=== PATIENT | female | born 1985 | race Caucasian/White ===

== ENCOUNTER 2018-11-08 07:23 | Emergency (ER) | payer OTHER ==
[~2018-11-08] VITALS: Ht 157.5 cm; Wt 89.8 kg
--- NOTE | 2018-11-08 07:55 | ED GU-Female ---
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 Was just switched from warfarin to xarelto. Is having abdominal cramps rated at 9/10 and has taken tylenol with no relief. States bleeding is less this morning but the pain is worse. Nursing Sepsis Screen: No Definite Risk Source: patient, family Exam Limitations: no limitations History of Present Illness Date Seen by Provider: Nov 08, 2018 Time Seen by Provider: 07:50 Initial Comments onset of heavy cramping and bleeding yesterday....menses. Taking a new blood thinner, xarelto. Previously took Coumadin for about 10 years for a brain aneurysm. Concerned regarding the amount of bleeding. - 3 miscarriages Timing/Duration: yesterday Severity/Quality: moderate Allergies and Home Medications Allergies Coded Allergies: cephalexin (Verified Allergy, Unknown, throat swelling , 11/08/18) Home Medications Tramadol HCl 50 Mg Tablet, 50 MG PO Q6H Prescribed by: VIKASH GOODSON on 11/08/18 0754 Patient Home Medication List Home Medication List Reviewed: Yes Review of Systems Review of Systems Constitutional: no symptoms reported; No dizziness; malaise; No weakness Cardiovascular: No chest pain, No edema, No palpitations, No syncope Gastrointestinal: abdominal pain (cramping); No nausea, No vomiting Genitourinary: denies discharge, denies dysuria, denies flank pain; pain, other (bleeding) Musculoskeletal: No back pain, No joint pain Past Rpoagwq-Hxqhol-Ezcykk Hx Past Med/Social Hx: Reviewed Nursing Past Med/Soc Hx Patient Social History Alcohol Use: Denies Use Recreational Drug Use: No Smoking Status: Never a Smoker 2nd Hand Smoke Exposure: No Recent Foreign Travel: No Contact w/Someone Who Travel: No Recent Infectious Disease Expo: No Recent Hopitalizations: No Physical Abuse: No Sexual Abuse: No Mistreated: No Fear: No Seasonal Allergies Seasonal Allergies: No Past Medical History Surgeries: Yes (clot retrieval for stroke in 2009) Appendectomy Respiratory: No Cardiac: No Neurological: Yes Stroke Genitourinary: No Gastrointestinal: No Musculoskeletal: No Endocrine: Yes Lupus HEENT: No Cancer: No Psychosocial: No Integumentary: No Blood Disorders: No Physical Exam Vital Signs Vital Signs - First Documented 11/08/18 07:28 Temp 96.5 Pulse 77 Resp 16 B/P (MAP) 116/79 (91) Pulse Ox 100 Capillary Refill : Less Than 3 Seconds Height, Weight, BMI Height: 5'2.00" Weight: 198lbs. oz. 89.027416ze; BMI Method:Stated General Appearance: WD/WN, no apparent distress Cardiovascular: regular rate, rhythm, no edema Respiratory: chest non-tender, lungs clear, normal breath sounds Gastrointestinal: normal bowel sounds, soft; No guarding, No rebound; tenderness (generalized lower abdomen) Progress/Results/Core Measures Suspected Sepsis Recent Fever Within 48 Hours: No Infection Criteria Present: None New/Unexplained Altered Menta: No Sepsis Screen: No Definite Risk SIRS Temperature:96.5 Pulse: 77 Respiratory Rate: 16 Laboratory Tests 11/08/18 08:02: Blood Pressure 116 /79 Mean: 91 Laboratory Tests 11/08/18 08:02: Results/Orders Lab Results Laboratory Tests Test 11/08/18 08:02 Range/Units My Orders Orders - VIKASH GOODSON DO Hcg,Qualitative Urine (11/08/18 07:40) Hydrocodone/Apap 5/325 Tablet (Lortab 5 (11/08/18 08:00) Cbc No Diff (11/08/18 07:48) Medications Given in ED Current Medications Medications Dose Ordered Sig/Jean Route Start Time Stop Time Status Last Admin Dose Admin Acetaminophen/ Hydrocodone Bitart 2 tab ONCE ONCE PO 11/08/18 08:00 11/08/18 08:01 DC 11/08/18 07:54 2 TAB Vital Signs/I&O 11/08/18 07:28 Temp 96.5 Pulse 77 Resp 16 B/P (MAP) 116/79 (91) Pulse Ox 100 Capillary Refill : Less Than 3 Seconds Blood Pressure Mean: 91 Departure Impression Primary Impression: Dysmenorrhea Additional Impression: Anticoagulated Disposition: 01 HOME, SELF-CARE Condition: Stable Departure-Patient Inst. Decision time for Depature: 07:55 Scripts Ondansetron (Ondansetron Odt) 4 Mg Tab.rapdis 4 MG PO Q6H for Nausea/Vomiting, #10 TAB Prov: VIKASH GOODSON DO 11/08/18 Tramadol HCl (Ultram) 50 Mg Tablet 50 MG PO Q6H for Pain, #10 TAB Prov: VIKASH GOODSON DO 11/08/18 VIKASH GOODSON DO Nov 08, 2018 07:55
[2018-11-08] MEDS ORDERED: TRAM-42 PO (07:59)
[2018-11-08] MEDS ORDERED: HYDROcodone/APAP 5 MG/325 MG (LORTAB) TAB PO ONE (08:00)
[2018-11-08] MEDS ORDERED: ONDA4TAB11 PO (08:17)
[2018-11-08 08:19] LABS: HEMOGLOBIN 11.8 G/DL (11.5-16.0); MEAN PLATELET VOLUME 9.4 FL (7.4-10.4); RED CELL DISTRIBUTION WIDTH 14.5 % (10.0-14.5)
[2018-11-08] MEDS ORDERED: ONDANSETRON 4 MG (ZOFRAN) ORAL DISSOLVE TAB PO STA (08:33)
[2018-11-08 09:32] VITALS: BP 111/61
[2018-11-08] MEDS ORDERED: OXYC1TAB16 PO (17:08)
[2018-11-08] MEDS ORDERED: OXYC1TAB87 PO (17:29)
== END 2018-11-08 08:50 | disposition home or self-care (01) ==
LOC: ER FS 07:25
DX: N94.6 Dysmenorrhea, unspecified (principal); M32.9 Systemic lupus erythematosus, unspecified; Z88.1 Allergy status to other antibiotic agents; Z79.01 Long term (current) use of anticoagulants; Z86.73 Personal history of transient ischemic attack (TIA), and cerebral infarction without residual deficits; Z90.49 Acquired absence of other specified parts of digestive tract
CPT/HCPCS: 36415; 84703; 85027

== ENCOUNTER 2018-11-08 14:43 | Emergency (ER) | payer OTHER ==
[~2018-11-08] VITALS: Ht 157.5 cm; Wt 89.8 kg
[~2018-11-08 14:43] MED LIST: ONDA4TAB11 PO; TRAM-42 PO
[2018-11-08] MEDS ORDERED: PROMETHAZINE INJ 25 MG/ML (PHENERGAN) AMP IVP ONE ×2 (15:00→17:30)
[2018-11-08] MEDS ORDERED: fentaNYL INJECTION 100 MCG/2 ML AMP IVP ONE ×3 (15:00→17:30)
[2018-11-08] MEDS ORDERED: NS IV 1000 ML 1,000 ML IV SCH (15:00)
[2018-11-08 15:05] LABS: BASOPHILS % (AUTO) 0 % (0-10); EOSINOPHILS % (AUTO) 0 % (0-10); HEMATOCRIT 33 % (35-52); HEMOGLOBIN 11.3 G/DL (11.5-16.0); LYMPHOCYTES # (AUTO) 0.4 X 10^3 (1.0-4.0); LYMPHOCYTES % (AUTO) 6 % (12-44); MEAN CORPUSCULAR HEMOGLOBIN 27 PG (25-34); MEAN CORPUSCULAR HGB CONC 34 G/DL (32-36); MEAN CORPUSCULAR VOLUME 80 FL (80-99); MEAN PLATELET VOLUME 9.3 FL (7.4-10.4); MONOCYTES # (AUTO) 0.4 X 10^3 (0.0-1.0); MONOCYTES % (AUTO) 6 % (0-12); NEUTROPHILS % (AUTO) 88 % (42-75); PLATELET COUNT 301 10^3/uL (130-400); RED CELL DISTRIBUTION WIDTH 14.8 % (10.0-14.5); WHITE BLOOD COUNT 6.8 10^3/uL (4.3-11.0)
--- NOTE | 2018-11-08 15:06 | ED Abdominal Pain ---
General Stated Complaint: ABD PAIN Source of Information: Patient Exam Limitations: No Limitations History of Present Illness Date Seen by Provider: Nov 08, 2018 Time Seen by Provider: 15:04 Initial Comments To ER by private vehicle with reports of lower abdominal cramping and vaginal bleeding. She reports lightheadedness. She was seen at the [place] emergency room this morning for this, CBC was done showing a hemoglobin of 11.8. She has used one pad today, she used 4 pads yesterday. She is very nauseous which she relates to the pain. She has vomiting on arrival. Reports history of lupus, on xarelto 20 mg daily for a history of stroke secondary to antiphospholipid syndrome. She was then seen at the clinic in [place] for follow-up after the emergency room visit, the fingerstick hemoglobin was 10.2 which was down from 11.8 venous stick in the emergency room. Timing/Duration: 1-2 Days Severity/Quality: Cramping Radiation: No Radiation Activities at Onset: None Associated Symptoms: Denies Symptoms Allergies and Home Medications Allergies Coded Allergies: cephalexin (Verified Allergy, Unknown, throat swelling , 11/08/18) Home Medications Ondansetron 4 Mg Tab.rapdis, 4 MG PO Q6H Prescribed by: VIKASH GOODSON on 11/08/18 0817 Oxycodone HCl/Acetaminophen 1 Each Tablet, 1 TAB PO Q4H PRN for PAIN-SEVERE Prescribed by: CARLOS BRONSON on 11/08/18 1729 Tramadol HCl 50 Mg Tablet, 50 MG PO Q6H Prescribed by: VIKASH GOODSON on 11/08/18 0759 Patient Home Medication List Home Medication List Reviewed: Yes Review of Systems Review of Systems Constitutional: see HPI EENTM: No Symptoms Reported Respiratory: No Symptoms Reported Cardiovascular: No Symptoms Reported Gastrointestinal: See HPI, Abdominal Pain, Nausea Genitourinary: No Symptoms Reported Musculoskeletal: no symptoms reported Skin: no symptoms reported Psychiatric/Neurological: No Symptoms Reported Endocrine: No Symptoms Reported Past Hhzcdbt-Xgzave-Fgcqoh Hx Patient Social History 2nd Hand Smoke Exposure: No Recent Hopitalizations: No Seasonal Allergies Seasonal Allergies: No Past Medical History Surgeries: Yes (clot retrieval for stroke in 2009) Appendectomy Respiratory: No Cardiac: No Neurological: Yes Stroke Genitourinary: No Gastrointestinal: No Musculoskeletal: No Endocrine: Yes Lupus HEENT: No Cancer: No Psychosocial: No Integumentary: No Blood Disorders: No Physical Exam Vital Signs Vital Signs - First Documented 11/08/18 14:49 Temp 98.7 Pulse 73 Resp 28 B/P (MAP) 133/87 (102) Pulse Ox 100 O2 Delivery Room Air Capillary Refill : Height/Weight/BMI Height: 5'2.00" Weight: 198lbs. oz. 89.848401zb; BMI Method:Stated General Appearance: WD/WN, no apparent distress, other (tachypneic on arrival, pale. Blood pressure is 133/78, heart rate in the 70s.) Respiratory: normal breath sounds, no respiratory distress, no accessory muscle use Cardiovascular: regular rate, rhythm, no murmur Gastrointestinal: normal bowel sounds, soft Extremities: normal range of motion, non-tender Pelvic: other (pelvic exam done with Rin GAN at the bedside. There is minimal amount of dark blood in the vaginal vault, there is a large clot at the cervical os, unable to be removed with a simple Q-tip.) Neurologic/Psychiatric: alert, normal mood/affect, oriented x 3 Skin: normal color, warm/dry Progress/Results/Core Measures Results/Orders Lab Results Laboratory Tests Test 11/08/18 14:55 11/08/18 16:53 11/08/18 17:00 Range/Units White Blood Count 6.8 4.3-11.0 10^3/uL Red Blood Count 4.13 L 4.35-5.85 10^6/uL Hemoglobin 11.3 L 11.5-16.0 G/DL Hematocrit 33 L 35-52 % Mean Corpuscular Volume 80 80-99 FL Mean Corpuscular Hemoglobin 27 25-34 PG Mean Corpuscular Hemoglobin Concent 34 32-36 G/DL Red Cell Distribution Width 14.8 H 10.0-14.5 % Platelet Count 301 130-400 10^3/uL Mean Platelet Volume 9.3 7.4-10.4 FL Neutrophils (%) (Auto) 88 H 42-75 % Lymphocytes (%) (Auto) 6 L 12-44 % Monocytes (%) (Auto) 6 0-12 % Eosinophils (%) (Auto) 0 0-10 % Basophils (%) (Auto) 0 0-10 % Neutrophils # (Auto) 6.0 1.8-7.8 X 10^3 Lymphocytes # (Auto) 0.4 L 1.0-4.0 X 10^3 Monocytes # (Auto) 0.4 0.0-1.0 X 10^3 Eosinophils # (Auto) 0.0 0.0-0.3 10^3/uL Basophils # (Auto) 0.0 0.0-0.1 10^3/uL Neutrophils % (Manual) 93 % Lymphocytes % (Manual) 4 % Monocytes % (Manual) 3 % Blood Morphology Comment NORMAL Sodium Level 138 135-145 MMOL/L Potassium Level 3.7 3.6-5.0 MMOL/L Chloride Level 105 98-107 MMOL/L Carbon Dioxide Level 18 L 21-32 MMOL/L Anion Gap 15 H 5-14 MMOL/L Blood Urea Nitrogen 10 7-18 MG/DL Creatinine 0.71 0.60-1.30 MG/DL Estimat Glomerular Filtration Rate > 60 BUN/Creatinine Ratio 14 Glucose Level 110 H 70-105 MG/DL Calcium Level 9.3 8.5-10.1 MG/DL Corrected Calcium 9.1 8.5-10.1 MG/DL Total Bilirubin 0.7 0.1-1.0 MG/DL Aspartate Amino Transf (AST/SGOT) 17 5-34 U/L Alanine Aminotransferase (ALT/SGPT) 14 0-55 U/L Alkaline Phosphatase 60 40-136 U/L Total Protein 7.4 6.4-8.2 GM/DL Albumin 4.2 3.2-4.5 GM/DL Serum Test, Qualitative NEGATIVE NEGATIVE Urine Color YELLOW Urine Clarity SLIGHTLY CLOUDY Urine pH 5 5-9 Urine Specific [place] 1.025 H 1.016-1.022 Urine Protein 2+ H NEGATIVE Urine Glucose (UA) NEGATIVE NEGATIVE Urine Ketones 4+ H NEGATIVE Urine Nitrite NEGATIVE NEGATIVE Urine Bilirubin NEGATIVE NEGATIVE Urine Urobilinogen NORMAL NORMAL MG/DL Urine Leukocyte Esterase 1+ H NEGATIVE Urine RBC (Auto) 5+ H NEGATIVE Urine RBC 25-50 H /HPF Urine WBC 2-5 /HPF Urine Crystals NONE /LPF Urine Bacteria FEW H /HPF Urine Casts NONE /LPF Urine Mucus NEGATIVE /LPF Urine Culture Indicated NO My Orders Orders - CARLOS BRONSON CAN PILER Cbc With Automated Diff (11/08/18 15:00) Hcg,Qualitative Serum (11/08/18 15:00) Comprehensive Metabolic Panel (11/08/18 15:00) Ua Culture If Indicated (11/08/18 15:00) Ed Iv/Invasive Line Start (11/08/18 15:00) Us Non Ob Pelvis Comp/Transvag (11/08/18 15:00) Fentanyl Injection (Sublimaze Injection (11/08/18 15:00) Promethazine Injection (Phenergan Injec (11/08/18 15:00) Ns Iv 1000 Ml (Sodium Chloride 0.9%) (11/08/18 15:00) Manual Differential (11/08/18 14:55) Ct Abd/Pelvis Wo(Kidney Stone) (11/08/18 16:06) Fentanyl Injection (Sublimaze Injection (11/08/18 16:15) Wet Prep (11/08/18 16:19) Neisseria Gonorrhea Swab (11/08/18 16:19) Genital Culture (11/08/18 16:19) Chlamydia Trachomatis Swab (11/08/18 16:19) Fentanyl Injection (Sublimaze Injection (11/08/18 17:30) Promethazine Injection (Phenergan Injec (11/08/18 17:30) Medications Given in ED Current Medications Medications Dose Ordered Sig/Jean Route Start Time Stop Time Status Last Admin Dose Admin Fentanyl Citrate 50 mcg ONCE ONCE IVP 11/08/18 15:00 11/08/18 15:02 DC 11/08/18 15:10 50 MCG Fentanyl Citrate 75 mcg ONCE ONCE IVP 11/08/18 16:15 11/08/18 16:16 DC 11/08/18 16:12 75 MCG Promethazine HCl 12.5 mg ONCE ONCE IVP 11/08/18 15:00 11/08/18 15:02 DC 11/08/18 15:14 12.5 MG Vital Signs/I&O 11/08/18 14:49 Temp 98.7 Pulse 73 Resp 28 B/P (MAP) 133/87 (102) Pulse Ox 100 O2 Delivery Room Air Diagnostic Imaging Diagonstic Imaging: Ultrasound Comments Ultrasound shows an enlarged uterus with question of a sizable mass involving the lower uterine segment/cervix which could be neoplastic in nature. It measures 7 x 5.2 x 4.3 cm of altered echogenicity. However after doing the pelvic exam I suspect this is the clot that we are actually seeing on ultrasound. Either way it is not hemorrhaging as suggested by stable vital signs hemoglobin and no significant blood in the vaginal vault. She'll need to follow- up with gynecology. Departure Communication (Admissions) Oxygen saturation dropped Down to 85% after second dose of fentanyl, quickly francisco j back to normal saturation after reminding her to take some deep breaths. We'll also obtain a CT scan to evaluate for other causes of pain such as ureteral stone. [address] [address] Dr. Colon, recommends discussing the possibility of need for D&C with gynecology. I then spoke with Dr. Negrete on-call for gynecology. Recommends pain management at this time, would not proceed with D&C with out active hemorrhage given that she is on xarelto. Updated Dr. Colon on our plan, will discharge to home with Percocet for pain control, follow-up with Dr. Negrete in the outpatient clinic and Dr. roy from primary care. Dr. Negrete has called back and was able to provide us with the time that she could see the patient Sunday morning at 8 AM. This was very much appreciated. Impression Primary Impression: Menstrual cramp Additional Impressions: Anticoagulant long-term use Vaginal bleeding Disposition: HOME, SELF-CARE Condition: Stable Departure-Patient Inst. Decision time for Depature: 17:06 Referrals: ANNIA ROY MD (PCP/Family) Primary Care Physician NANCY NEGRETE DO Patient Instructions: IRREGULAR VAGINAL BLEEDING Add. Discharge Instructions: 1. Do not be alarmed if you pass a large clot in the next 1-2 days. Return to ER for any lightheadedness or other concerns such as high heart rate. Follow-up with Dr. Negrete, RADIATOR MECHANIC on Sunday here at the hospital on second floor at 8 AM. Return to ER for any concerns or worsening symptoms in the meantime. Scripts Oxycodone HCl/Acetaminophen (Percocet 5-325 mg Tablet) 1 Each Tablet 1 TAB PO Q4H PRN for PAIN-SEVERE MDD 6 TABS for 7 Days, #20 TAB Prov: CARLOS BRONSON APRN 11/08/18 Copy Copies To 1: WICHO COLON DO; NANCY NEGRETE PETER J APRN Nov 08, 2018 15:06
[2018-11-08 15:28] LABS: ALANINE AMINOTRANSFERASE 14 U/L (0-55); ALBUMIN 4.2 GM/DL (3.2-4.5); ALKALINE PHOSPHATASE 60 U/L (40-136); BILIRUBIN,TOTAL 0.7 MG/DL (0.1-1.0); BUN/CREATININE RATIO 14; CALCIUM 9.3 MG/DL (8.5-10.1); CARBON DIOXIDE 18 MMOL/L (21-32); CHLORIDE 105 MMOL/L (98-107); CREATININE SERUM 0.71 MG/DL (0.60-1.30); GFR ESTIMATED > 60; GLUCOSE 110 MG/DL (70-105); POTASSIUM 3.7 MMOL/L (3.6-5.0); SODIUM 138 MMOL/L (135-145); TOTAL PROTEIN 7.4 GM/DL (6.4-8.2)
[2018-11-08 15:42] LABS: LYMPHOCYTES % (MANUAL) 4 %; MONOCYTES % (MANUAL) 3 %; NEUTROPHILS % (MANUAL) 93 %; RBC MORPH NORMAL
--- NOTE | 2018-11-08 16:43 | Diagnostic Imaging Report ---
PROCEDURE: US Non-OB pelvis comp/trans. TECHNIQUE: Multiple realtime grayscale images were obtained of the pelvis in various projections endovaginally. Transabdominal imaging was also performed. INDICATION: Abdominal pain. COMPARISON: There are no prior studies available for comparison. FINDINGS: The uterus is nongravid and mildly enlarged measuring 11.2 x 7.1 x 4.3 cm. The endometrial lining is not thickened measuring 5-6 mm. However, there is a poorly defined 7 x 5.2 x 4.3 cm area of altered echogenicity within the lower uterine segment. There may be a small cystic component associated with this finding. This soft tissue density is of uncertain etiology but worrisome for a cervical neoplastic mass. If further imaging is desired, then CT would be recommended. Ultimately, direct visualization would be recommended. The right ovary could not be visualized. The left ovary is unremarkable. IMPRESSION: 1. The uterus is enlarged, and there is a question of a sizable mass involving the lower uterine segment/cervix. This could be neoplastic in nature. Recommendations as above. 2. There is no acute pelvic abnormality noted otherwise. 3. The right ovary was not visualized. Dictated by: Dictated on workstation # [id number]
--- NOTE | 2018-11-08 16:51 | Diagnostic Imaging Report ---
PROCEDURE: CT urinary tract, rule out kidney stone. TECHNIQUE: Multiple contiguous axial images were obtained through the abdomen and pelvis without the use of intravenous contrast. Auto Exposure Controls were utilized during the CT exam to meet ALARA standards for radiation dose reduction. INDICATION: Hematuria, nausea, vomiting, and lower abdominal pain. FINDINGS: The appendix is surgically absent. There is no hydroureteronephrosis. No radiodense urinary tract calculi. No perinephric edema. Liver, spleen, adrenals, pancreas, and gallbladder are all negative. The aorta is nonaneurysmal. There is no bowel obstruction. There is no diverticulitis. There is some mild distal left external iliac chain lymphadenopathy of uncertain etiology. The largest of these nodes was 2.3 x 1.6 cm. Subcentimeter lymph nodes in the inguinal canals did not appear distorted or pathologic. There is abnormal appearance and fusiform enlargement of the lower uterine segment and cervix where there is suggestion of intraluminal hyperdense mass effect. This could be blood products or soft tissue lesion. A correlative pelvic ultrasound is recommended as further evaluation. Lesion in question was roughly 5 cm in length and in axial plane measured maximal dimension of 4.1 cm transverse. IMPRESSION: 1. Abnormal appearance of the lower uterine segment and cervix, appearing distended by an intraluminal hyperdense mass effect which could be blood clot or soft tissue lesion. Pelvic ultrasound recommended as further evaluation. 2. We note mild etiology-indeterminate left pelvic sidewall external iliac chain lymphadenopathy. 3. Unobstructed urinary tracts. No other potential acute finding. Dictated by: Dictated on workstation # [id number]
[2018-11-08] MEDS ORDERED: OXYC1TAB16 PO (17:08)
[2018-11-08 17:12] LABS: BILIRUBIN,URINE NEGATIVE (NEGATIVE); CLARITY,URINE SLIGHTLY CLOUDY; COLOR,URINE YELLOW; GLUCOSE, URINE (UA) NEGATIVE (NEGATIVE); KETONES,URINE 4+ (NEGATIVE); LEUKOCYTE ESTERASE ,URINE 1+ (NEGATIVE); NITRITE,URINE NEGATIVE (NEGATIVE); PH,URINE 5 (5-9); PROTEIN,URINE 2+ (NEGATIVE); UROBILINOGEN,URINE NORMAL (NORMAL)
[2018-11-08 17:29] LABS: BACTERIA,URINE FEW /HPF; RBC,URINE 25-50 /HPF
[2018-11-08] MEDS ORDERED: OXYC1TAB87 PO (17:29)
[2018-11-08 18:01] VITALS: BP 134/93
== END 2018-11-08 18:03 | disposition home or self-care (01) ==
LOC: EDUNIT# 14:43 → ER 14:44
DX: N94.6 Dysmenorrhea, unspecified (principal); N93.9 Abnormal uterine and vaginal bleeding, unspecified; M32.9 Systemic lupus erythematosus, unspecified; Z79.01 Long term (current) use of anticoagulants; Z88.1 Allergy status to other antibiotic agents; Z90.49 Acquired absence of other specified parts of digestive tract; Z86.73 Personal history of transient ischemic attack (TIA), and cerebral infarction without residual deficits
CPT/HCPCS: 36415; 74176; 76830; 76856; 80053; 81000; 84703; 85007; 85027; 87070; 87077; 87205; 87210; 87491; 87591; 96361; 96374; 96375; 96376

== ENCOUNTER → 2018-11-15 | Outpatient (CLI) | payer OTHER ==
[~2018-11-15] MED LIST changes: +OXYC1TAB16 PO; +OXYC1TAB87 PO
--- NOTE | 2018-11-15 11:56 | Diagnostic Imaging Report ---
PROCEDURE: US Non-ob pelvis comp/trans. TECHNIQUE: Multiple realtime grayscale images were obtained of the pelvis in various projections endovaginally. Transabdominal imaging was also performed. INDICATION: Menorrhagia and uterine mass. Correlation is made with the pelvic ultrasound from the 11/08/[address] abdomen and pelvis from 11/08/2018. FINDINGS: Uterus measures 8.9 x 5.6 x 4.8 cm. Previously noted echogenic mass in the region of the lower uterine segment is again noted but appears slightly smaller on today's study at 4.1 x 2.7 x 2.3 cm. Endometrium is 7 mm in thickness. Right ovary measures 3.8 x 2.5 x 1.9 cm and the left ovary measures 3.2 x 3.0 x 2.3 cm. There is an approximately 2 cm left ovarian cyst. There is blood flow to the ovaries. IMPRESSION: Echogenic heterogeneous mass in the region of the lower uterine segment does appear to be slightly smaller when compared with studies from one week earlier. This remains indeterminate. Decrease in size could either be postsurgical or perhaps some contraction of blood clot. Underlying neoplasm cannot be entirely excluded. Dictated by: Dictated on workstation # [id number]
== END ==
LOC: RAD 10:31
PROVIDERS: ATTEND Obstetrics & Gynecology
DX: N92.0 Excessive and frequent menstruation with regular cycle (principal); N85.8 Other specified noninflammatory disorders of uterus
CPT/HCPCS: 76830; 76856

== ENCOUNTER 2018-11-26 07:33 | Day surgery (SDC) | payer OTHER ==
[2018-11-26] VITALS (10 sets, daily range): BP systolic 100–133; BP diastolic 68–85
[~2018-11-26] VITALS: Ht 157.5 cm; Wt 86.3 kg
[~2018-11-26 07:33] MED LIST changes: +ASPI-586 PO; +HYDR200T46 PO; +LORA1TAB PO; +PRED2.5T PO; +RIVA20TA PO
[2018-11-26] MEDS: LACTATED RINGERS 1,000 ML IV PRN ×3 (08:15→10:13)
[2018-11-26] MEDS ORDERED: LIDOCAINE PF 2% 5 ML (XYLOCAINE) VIAL ONE (08:27)
[2018-11-26] MEDS ORDERED: MIDAZOLAM 2 MG/2 ML (VERSED) VIAL ONE (08:27)
[2018-11-26] MEDS ORDERED: proPOfol 200 MG/20 ML (DIPRIVAN) VIAL IV ONE (08:27)
[2018-11-26] MEDS ORDERED: fentaNYL INJECTION 100 MCG/2 ML AMP ONE (08:28)
[2018-11-26] MEDS ORDERED: HYDROCORTISONE 100 MG/2 ML (Solu-CORTEF) VIAL ONE (09:11)
[2018-11-26] MEDS ORDERED: CLINDAMYCIN 600 MG/50 ML IVPB 50 ML IV ONE ×2 (09:16→09:30)
--- NOTE | 2018-11-26 09:27 | Progress Note-Pre Operative ---
Pre-Operative Progress Note H&P Reviewed The H&P was reviewed, patient examined and no changes noted. Date Seen by Provider: Nov 26, 2018 Time Seen by Provider: 09:20 Date H&P Reviewed: Nov 26, 2018 Time H&P Reviewed: 09:20 Pre-Operative Diagnosis: menorrhagia, anticogulated, Lupus NANCY NEGRETE DO Nov 26, 2018 09:27
--- NOTE | 2018-11-26 09:33 | Discharge Inst-Surgical ---
Discharge Inst-Surgical Reconcile Patient Problems Problems Reviewed?: Yes Depart Medication/Instructions New, Converted or Re-Newed RX: RX Given to Pt/Family Final Diagnosis: menorrhagia Consults/Follow Up Goal/Follow Up Appt.: 1-2 weeks with Sumit Patient Instructions: nothing in the vagina for 2-4 weeks (until discharge has stopped); call if questions Activity Activity as Tolerated: Yes Driving Instructions: No Driving for 24 Hours No Driving When on Pain Meds: Yes Incentive Spirometry: Every 2 Hours While Awake Avoid ALL Tobacco Products: Smoking of Any Kind, Chewing Tobacco, Second Hand Smoke Diet Diet for 24 Hours: No Alcohol Diet After 24 Hours: Resume Home Diet Symptoms to Report to Physicia: Bleeding Excessive, Pain Increased, Fever Over 101 Degrees F, Vaginal Bleeding Increase, Vaginal Discharge Foul If Any Problems/Questions/Issu: Contact Your Physician NANCY NEGRETE DO Nov 26, 2018 09:33
[2018-11-26] MEDS ORDERED: ONDANSETRON 4 MG/2 ML (SDV) Z0FRAN ONE (09:45)
[2018-11-26] MEDS ORDERED: SEVOFLURANE (ULTANE) 15 ML INHAL SOLN ONE ×2 (09:45→09:48)
[2018-11-26] MEDS ORDERED: DEXAMETHASONE 10 MG/ML (DECADRON) 1 ML VIAL ONE (09:45)
[2018-11-26] MEDS ORDERED: HYDROmorphone 2 MG/ML VIAL (DILAUDID) IV ONE (10:15)
[2018-11-26] MEDS ORDERED: ACET-2267 PO (10:15)
[2018-11-26] MEDS ORDERED: ONDANSETRON 4 MG/2 ML (SDV) Z0FRAN IVP PRN (10:15)
--- NOTE | 2018-11-26 10:17 | OB/GYN Operative Report ---
Operative Report Date of Procedure:Nov 26, 2018 Preoperative Diagnosis: menorrhagia, anticoagulated, lupus Postoperative Diagnosis: same Name of the Procedure: hysteroscopy, Pilar ablation Surgeon: Loida Negrete Outpatient Case Manager(s): [none] EBL: None Anesthesia: general Indications for Procedure: vaginal hemorrhage and hematoma after starting Xarelto Findings of the Procedure: no masses Description of the Procedure: [] Complications: None Disposition: stable LOIDA NEGRETE DO Nov 26, 2018 10:17
--- NOTE | 2018-11-26 11:00 | NUR ---
TO AMB SURG FROM PAR PER CART. ALERT, RATES CRAMPY PELVIC PAIN 4. ASSIST UP TO BR, VOIDED WITHOUT PROBLEM. VERY SCANT AMOUNT OF BLOODY DRAINAGE ON V-PAD. ASSIST BACK TO ROOM. PO FLUIDS AND CRACKERS PROVIDED.
--- NOTE | 2018-11-26 11:38 | NUR ---
OXYCODONE 5 MG GIVEN PO.
--- NOTE | 2018-11-26 12:15 | NUR ---
CONTINUES TO HAVE ONLY VERY SCANT AMOUNT OF BLOODY DRAINAGE ON V-PAD. PAIN RATED 3. STATES SHE IS READY FOR DISMISSAL. UP AGAIN TO BR TO VOID AND BACK TO ROOM TO CHANGE FOR HOME.
--- NOTE | 2018-11-26 13:09 | Anesthesia-General Post-Op ---
General Patient Condition Mental Status/LOC: Same as Preop Cardiovascular: Satisfactory Nausea/Vomiting: Absent Respiratory: Satisfactory Pain: Controlled Complications: Absent Post Op Complications Complications None Follow Up Care/Instructions Patient Instructions None needed. Anesthesia/Patient Condition Patient Condition Patient is doing well, no complaints, stable vital signs, no apparent adverse anesthesia problems. No complications reported per nursing. KARLIE LAND CRNA Nov 26, 2018 13:09
== END 2018-11-26 12:35 | disposition home or self-care (01) ==
LOC: SDC 07:33
PROVIDERS: ATTEND Obstetrics & Gynecology
DX: N92.0 Excessive and frequent menstruation with regular cycle (principal); Z11.2 Encounter for screening for other bacterial diseases; M32.9 Systemic lupus erythematosus, unspecified; M19.91 Primary osteoarthritis, unspecified site; E66.9 Obesity, unspecified; Z68.34 Body mass index [BMI] 34.0-34.9, adult; Z79.01 Long term (current) use of anticoagulants; Z86.718 Personal history of other venous thrombosis and embolism; Z86.711 Personal history of pulmonary embolism; Z79.82 Long term (current) use of aspirin; Z79.899 Other long term (current) drug therapy; Z79.52 Long term (current) use of systemic steroids; Z86.73 Personal history of transient ischemic attack (TIA), and cerebral infarction without residual deficits
CPT/HCPCS: 84703; 87081

== ENCOUNTER → 2019-01-20 | Outpatient (CLI) | payer OTHER ==
[~2019-01-20] MED LIST changes: +ACET-2267 PO
--- NOTE | 2019-01-20 16:13 | Diagnostic Imaging Report ---
PROCEDURE: US Non-ob pelvis comp/trans. TECHNIQUE: Multiple realtime grayscale images were obtained of the pelvis in various projections endovaginally. Transabdominal imaging was also performed. INDICATION: Uterine anomaly and uterine mass. COMPARISON: Correlation is made with prior ultrasound from 11/15/2018. FINDINGS: Uterus measures 8.9 x 5.6 x 4.8 cm. Endometrium is 7 mm in thickness. The area of questionable mass in heterogeneity in the region of the cervix and lower uterine segment appears smaller on today's study, measuring 2.9 x 2.8 x 1.7 cm. Cervical nabothian cysts are noted. The right ovary measures 3.6 x 2.2 x 1.8 cm and the left ovary measures 3.1 x 2.7 x 2.1 cm. Right ovary contains a 13 mm cyst. Left ovary contains approximately 13 mm cyst. No free fluid is seen. IMPRESSION: Decrease in size of the heterogeneous questionable mass in the region of the cervix and lower uterine segment when compared with exam from 11/15/2018. Continued follow-up is recommended. Dictated by: Dictated on workstation # [id number]
== END ==
LOC: RAD 10:01
PROVIDERS: ATTEND Obstetrics & Gynecology
DX: N85.9 Noninflammatory disorder of uterus, unspecified (principal); Q51.9 Congenital malformation of uterus and cervix, unspecified
CPT/HCPCS: 76830; 76856